=== PATIENT | male | born 1985 | race Caucasian/White ===

== ENCOUNTER 2021-01-14 18:02 | Emergency (ER) | payer SELFPAY ==
[2021-01-14 18:12] VITALS: BP 122/83; PULSE 117; RESP 18; TEMP 36.6; O2SAT 100
--- NOTE | 2021-01-14 18:34 | ED.URI ---
HPI - URI/Sore Throat General Chief Complaint: Upper Respiratory Infection Stated Complaint: sore throat Time Seen by Provider: 01/14/21 18:35 Source: patient Mode of arrival: ambulatory Limitations: no limitations History of Present Illness HPI Narrative: Karan Cano is a 35 yo male with a PMH of a trach in relation to a vocal cord dysfunction earlier in his life, who comes with concern for an enlarged lump under his left lower jaw. States it started about 4 5 days ago he has had a tooth ache in the last 2 weeks where filling is fallen out and he has not had dental care; he also has sinus drainage at times is so heavy that he has to cough phlegm up. He currently smokes cigarettes. He has not had a code vaccination. Related Data Allergies Allergy/AdvReac Type Severity Reaction Status Date / Time cephalexin [From Keflex] Allergy Unknown Hives Verified 01/14/21 18:28 Penicillins Allergy Unknown Hives Verified 01/14/21 18:27 diphenhydramine AdvReac Intermediate Palpitation Verified 01/14/21 18:27 [From Graciela] s Review of Systems Review of Systems: Narrative: CONSTITUTIONAL: Denies fever, chills, sweats. EYES: Denies visual changes, redness, discharge. ENT: Denies rhinorrhea, congestion, sore throat, otalgia. Has enlarged lesion under left lower jaw; left ear feels somewhat plugged up CARDIOVASCULAR: Denies chest pain, palpitations, edema. RESPIRATORY: Denies dyspnea, wheezing, cough GASTROINTESTINAL: Denies abdominal pain, nausea, vomiting, diarrhea. GENITOURINARY: Denies dysuria, hematuria, abnormal discharge SKIN: Denies rash or itching. NEUROLOGIC: Denies numbness, or focal weakness. PSYCHIATRIC: Denies anxiety or depression. [facility] Past Medical History Medical History (Updated 01/14/21 @ 18:45 by Nicky Ribeiro CNP) Vocal cord dysfunction Surgical History Surgical History (Updated 01/14/21 @ 18:39 by Nicky Ribeiro CNP) Tracheostomy status Family History Family History Mother Diabetes mellitus Father Diabetes mellitus Social History Social History (Updated 01/14/21 @ 18:40 by Nicky Ribeiro CNP) Smoking packs per day: 0.5 Smoking cigarettes per day: 10.0 Smoking status: Current every day smoker Alcohol intake: current Gender identity (if verbalized by the patient): Male Comments At time of signature, I agree with nursing past medical, surgical, social and family history. There is no relevant family history pertinent to the presenting complaint. Exam Narrative: Exam Narrative: GENERAL: This is a well-nourished, well-developed patient, in mild distress. Very anxious; states his fear of doctors and dentists HEAD: normocephalic, atraumatic. EYES: Sclera clear/white. Vision is grossly intact. EARS: External ears normal, auditory canals clear on R, Fluid behind TM on L, both mild erythema without drainage, . Hearing grossly intact. NOSE: External nose normal without nasal discharge, nares without redness, no rhinorrhea. THROAT: Mucous membranes moist, posterior pharynx erythema NECK: Neck supple, tender lymph node under left lower jaw CARDIOVASCULAR: Regular rate and rhythm without murmurs, gallops, or rubs. RESPIRATORY: Clear to auscultation. Breath sounds equal bilaterally. No wheezes, rales, or rhonchi. GASTROINTESTINAL:not performed SKIN: warm, intact with no suspicious lesions or rash, good texture and turgor. NEURO: awake, alert, and oriented to person, place and time. There were no obvious focal neurologic abnormalities. Steady gait EXTREMITIES: Normal range of motion. BACK: Nontender without deformity Course Course Emergency Course: Patient came with concern over lesion on her left lower jaw also has lot of sinus drainage Discussion started on Zyrtec, eardrops (Polymixin -use Tylenol or ibuprofen for pain Patient to also think about decreasing his smoking and consider getting a Covid vaccine Vital Signs
[2021-01-14 19:01] LABS: Glucose Point of Care 121 mg/dl (65-105)
== END 2021-01-14 19:05 | disposition home or self-care (01) ==
PROVIDERS: Emergency Provider Nurse Practitioner
DX: J30.2 Other seasonal allergic rhinitis (principal); I88.9 Nonspecific lymphadenitis, unspecified; H66.002 Acute suppurative otitis media without spontaneous rupture of ear drum, left ear; F17.210 Nicotine dependence, cigarettes, uncomplicated
CPT/HCPCS: 82948; 99213; G0463

== ENCOUNTER 2021-11-30 16:27 | Emergency (ER) | payer OTHER, SELFPAY ==
--- NOTE | ~2021-11-30 | XR_ITS ---
EXAMINATION: XR chest 2V Exam Date/Time: 11/30/2021 16:55 CDT HISTORY: left sided chest pain [id number] , sob Comparison: None available. RESULT: Lines, tubes, and devices: None. Lungs and pleura: Clear. Cardiomediastinal silhouette: Normal cardiomediastinal silhouette. Other: No acute osseous or upper abdominal finding. IMPRESSION: No acute cardiopulmonary process. Reviewed, dictated and finalized at location K.
--- NOTE | 2021-11-30 16:28 | ECG_ITS ---
Measurements Intervals [place] Rate: 84 P: 46 OK: 140 QRS: 37 QRSD: 89 T: 42 QT: 358 QTc: 426 Interpretive Statements SINUS RHYTHM NORMAL ECG Electronically Signed On 11-30-2021 17:10:42 CDT by Suleman Ha D.O.
[2021-11-30 16:29] VITALS: BP 140/80; PULSE 87; RESP 19; TEMP 36.8; O2SAT 97
[2021-11-30 16:39] VITALS: PULSE 81; RESP 23; O2SAT 96
--- NOTE | 2021-11-30 17:03 | ED.CHESTPAIN ---
HPI - Chest Pain General Chief Complaint: Chest Pain <NITIN Edwards Last Filed: 11/30/21 19:01> Stated Complaint: chest pain x1 month <NITIN Edwards Last Filed: 11/30/21 19:01> Time Seen by Provider: 11/30/21 16:53 <NITIN Edwards Last Filed: 11/30/21 19:01> Source: patient <NITIN Edwards Last Filed: 11/30/21 19:01> Mode of arrival: ambulatory <NITIN Edwards Last Filed: 11/30/21 19:01> Limitations: no limitations <NITIN Edwards Last Filed: 11/30/21 19:01> History of Present Illness HPI narrative: Patient is a 36-year-old male who presents to the ED with report of left-sided chest pain, described as a jolting sensation. Patient reports the pain has been present intermittently over the past 1 month, since he quit smoking cigarettes and drinking energy drinks. He states the pain occurs at least once a day, but sometimes occurs more frequently. The pain lasts for approximately 1 second at a time before resolving and occurs at random times. Denies any definitive aggravating factors. No radiation of pain. He has tried taking aspirin at home without improvement of pain. He denies any associated symptoms aside from feeling slightly panicked after the pain occurs. No shortness of breath, back pain, nausea, vomiting, abdominal pain, recent cough or cold symptoms, fever, chills, BLE pain or edema. <Gwendolyn Main PA-C - Last Filed: 11/30/21 19:01> Related Data Home Medications: Home Medications Medication Instructions Recorded Confirmed No Home Medications 11/30/21 11/30/21 <NITIN Edwards Last Filed: 11/30/21 19:01> Allergies/Adverse Reactions: Allergies Allergy/AdvReac Type Severity Reaction Status Date / Time cephalexin [From Keflex] Allergy Unknown Hives Verified 01/14/21 18:28 clindamycin Allergy Unknown Hives Verified 01/16/21 18:06 Penicillins Allergy Unknown Hives Verified 01/14/21 18:27 prednisone Allergy Unknown Hives Verified 01/16/21 18:07 diphenhydramine AdvReac Intermediate Palpitation Verified 01/14/21 18:27 [From Benadryl] s <Gwendolyn Main PA-C - Last Filed: 11/30/21 19:01> Review of Systems Review of Systems: CONSTITUTIONAL: Denies fever, chills, or sweats. ENT: Denies rhinorrhea, congestion. CARDIOVASCULAR: Reports left-sided chest pain. Denies palpitations or BLE edema. RESPIRATORY: Denies cough or dyspnea. GASTROINTESTINAL: Denies abdominal pain, nausea, vomiting. GENITOURINARY: Denies dysuria or hematuria. MUSCULOSKELETAL: Denies BLE pain, back pain, joint pain, or myalgia. NEUROLOGIC: Denies dizziness, lightheadedness, numbness, or weakness. PSYCHIATRIC: Reports anxiety. Denies depression. <Gwendolyn Main PA-C - Last Filed: 11/30/21 19:01> All systems reviewed & are unremarkable except as noted in HPI and below <Gwendolyn Main PA-C - Last Filed: 11/30/21 19:01> [facility] Past Medical History Medical History: Medical History (Updated 11/30/21 @ 18:55 by Gwendolyn Main PA-C) Anxiety Vocal cord dysfunction <Gwendolyn Main PA-C - Last Filed: 11/30/21 19:01> Surgical History Surgical History: Surgical History (Updated 11/30/21 @ 17:29 by Gwendolyn Main PA-C) History of spinal surgery Tracheostomy status <Gwendolyn Main PA-C - Last Filed: 11/30/21 19:01> Family History Family History: Family History Mother Diabetes mellitus Father Diabetes mellitus <Gwendolyn Main PA-C - Last Filed: 11/30/21 19:01> Social History Social History: Social History (Updated 11/30/21 @ 18:59 by Gwendolyn Main PA-C) Smoking status: Former smoker Smoking end date: 10/11/21 Alcohol intake: current Gender identity (if verbalized by the patient): Male <Gwendolyn Main PA-C - Last Filed: 11/30/21 19:01> Exam Narrative: GENERAL: Well appearing, well-nourished, non-toxic, in no acute d
[2021-11-30 17:14] LABS: Basophils Percent Auto 0.5 % (0.2-1.2); Eosinophils Absolute Auto 0.3 K/mm3 (0-0.3); Eosinophils Percent Auto 4.9 % (0-4.4); Hematocrit 48.2 % (42.0-52.0); Hemoglobin 16.4 g/dL (14.0-18.0); Immature Granulocyte Absolute 0.01 K/mm3 (0.00-0.031); Immature Granulocyte Percent A 0.2 % (0-0.5); Lymphocytes Absolute Auto 2.42 K/mm3 (0.9-3.2); Lymphocytes Percent Auto 36.8 % (18.3-44.2); Mean Corpuscular Volume 94.1 fl (80-100); Mean Platelet Volume 9.4 fl (7.4-10.4); Monocytes Absolute Auto 0.3 K/mm3 (0.1-0.6); Monocytes Percent Auto 5.2 % (2.6-8.5); Neutrophils Absolute Auto 3.5 K/mm3 (1.3-6.7); Neutrophils Percent Auto 52.4 % (45.5-73.1); Platelet Count Result 185 k/mm3 (150-375); Red Blood Count 5.12 M/mm3 (4.6-6.20); Red Cell Distribution Width 12.3 % (11.5-14.5); White Blood Count 6.6 K/mm3 (4.5-10.0)
[2021-11-30 17:16] VITALS: PULSE 89; RESP 24; O2SAT 97
[2021-11-30 17:24] LABS: Alanine Aminotransferase 28 U/L (6-50); Albumin Level 4.7 g/dL (3.5-5.1); Alkaline Phosphatase 81 U/L (38-126); Anion Gap 6 mmol/L (8-16); Aspartate Amino Transferase 25 U/L (17-59); Bilirubin,Total 0.7 mg/dL (0.2-1.3); Blood Urea Nitrogen 15 mg/dL (9-20); Calcium 8.6 mg/dL (8.4-10.2); Carbon Dioxide 29 mmol/L (22-30); Chloride 103 mmol/L (98-107); Estimated CRCL calculation 91 ml/min; Estimated Glomerular Filt Rate > 60; Glucose 102 mg/dL (65-110); Lipase 80 U/L (23-300); Potassium 3.7 mmol/L (3.4-5.0); Sodium 138 mmol/L (137-145)
[2021-11-30 17:25] LABS: INR 1.2; Prothrombin Time 14.4 Seconds (11.1-14.7)
[2021-11-30 17:26] LABS: Partial Thromboplastin Time 30.7 SECONDS (22.3-36.8)
[2021-11-30 17:36] LABS: Troponin I < 0.012 ng/mL (0.000-0.034)
[2021-11-30 17:53] VITALS: BP 125/70; PULSE 71; RESP 16; O2SAT 99
[2021-11-30 18:59] VITALS: BP 112/88; PULSE 78; RESP 16; O2SAT 98
== END 2021-11-30 18:59 | disposition home or self-care (01) ==
PROVIDERS: Emergency Medicine; Emergency Provider General Practice
DX: R07.89 Other chest pain (principal); Z87.891 Personal history of nicotine dependence
CPT/HCPCS: 36415; 71046; 80053; 83690; 84484; 85025; 85610; 85730; 93005; 99284